=== PATIENT | female | born 2000 | race Caucasian/White ===

== ENCOUNTER 2025-07-26 09:38 | Emergency (ER) | payer OTHER, SELFPAY ==
[2025-07-26] VITALS (7 sets, daily range): BP systolic 107–137; BP diastolic 67–79; PULSE 66–89; RESP 18; TEMP 36.6; O2SAT 94–100; BMI 27.4
--- NOTE | 2025-07-26 | DI.US.S_ITS ---
PROCEDURE: US ABDOMEN COMPLETE INDICATIONS: DIFFUSE PAIN TECHNIQUE: Real-time scanning was performed of the abdominal and retroperitoneal organs, with image documentation. COMPARISON: None. FINDINGS: Liver: Liver measures 14 cm. Mildly increased echogenicity Gallbladder: Absent Biliary ducts: Nondilated CBD at 3 mm Pancreas: Visualized portions of the pancreas are sonographically normal. Spleen: Spleen is normal in size and homogeneous in echotexture. Kidneys: Kidneys are normal in size and echotexture. Right kidney measures 10 cm long; left kidney measures 10 cm long. No hydronephrosis or nephrolithiasis. No solid masses. Aorta: Visualized aorta is normal in caliber at less than 3 cm. Iliacs: Proximal common iliac arteries are normal in caliber at less than 2.5 cm. IVC: Intrahepatic inferior vena cava is patent. Miscellaneous: No free abdominal fluid. IMPRESSION: No acute abdominal abnormality by ultrasound. Liver shows mildly increased echogenicity, nonspecific, most commonly steatosis. Dictated by: Joss Martínez M.D. on 07/26/2025 at 11:14 Approved by: Joss Martínez M.D. on 07/26/2025 at 11:15
--- NOTE | 2025-07-26 10:21 | DI.US.S_ITS ---
PROCEDURE: US PELVIC COMPLETE INDICATIONS: RIGHT PELVIC PAIN TECHNIQUE: Real-time scanning was performed of the pelvic organs, with image documentation. Additional endovaginal scanning was necessary due to incomplete visualization of the adnexal and endometrial structures by transabdominal scanning. COMPARISON: None. FINDINGS: Uterus: Absent Ovaries: Nonenlarged, measuring 4 mL on the right and 6 mL on the left. Color and spectral flows are seen bilaterally. Other: Appendix was not visualized on ultrasound IMPRESSION: No acute or significant sonographic abnormality in the pelvis. Uterus is absent. Dictated by: Joss Martínez M.D. on 07/26/2025 at 11:15 Approved by: Joss Martínez M.D. on 07/26/2025 at 11:16
--- NOTE | 2025-07-26 10:22 | ED.ABDPAIN ---
HPI - Abdominal Pain General Chief Complaint: Abdominal Pain Stated Complaint: Lower rt abd pain, diarrhea, breast pain x1 week Time Seen by Provider: 07/26/25 10:12 History of Present Illness HPI narrative: This is a 24-year-old female seen today for right lower quadrant abdominal pain x1 week. Patient reports that she has a had right lower quadrant abdominal pain for a week he has not had dysuria, has chronically had a bit of a vaginal discharge and pain with intercourse. Says that she episodically has pelvic pain associated with breast engorgement and URI symptoms. This occurs approximately monthly, she is status post hysterectomy with ovaries left in-situ. Has been discussing this with her primary care at the [facility], does not feel like she is getting much done about it. Patient is sexually active with 1 male partner. No history of gonorrhea and chlamydia. No changes in her bowel habits. States that her current right lower quadrant symptoms are worse than they have ever been previously. Related Data Allergies Allergy/AdvReac Type Severity Reaction Status Date / Time diphenhydramine (From AdvReac tachycardia Verified 07/26/25 10:08 Benadryl) Patient History Social History Smoking Status: Never smoker Exam Initial Vital Signs Initial Vital Signs: Vital Signs Temperature 98 F 07/26/25 10:05 Pulse Rate 89 07/26/25 10:05 Respiratory Rate 18 07/26/25 10:05 Blood Pressure 137/77 07/26/25 10:05 Pulse Oximetry 99 07/26/25 10:05 Oxygen Delivery Method Room Air 07/26/25 10:05 vital signs are reviewed Const General: cooperative and No acute distress [facility] Head: normocephalic and atraumatic Face and sinus: face symmetric Mouth: moist mucous membranes Eyes Pupils: PERRL EOM: EOM intact bilaterally Neck Neck: normal visual inspection, supple and No JVD Chest Chest: normal inspection of the chest Resp Effort & Inspection: normal respiratory effort and able to speak in complete sentences Auscultation: clear to auscultation bilaterally Cardio Rate: regular rate Rhythm: regular rhythm Heart Sounds: no murmurs Other: Normal heart rate GI Other: Abdomen is soft, bowel sounds are normal. She is diffusely tender with voluntary guarding. No mass, no definite focal tenderness. No rebound. Back/Spine/Pelvis Back: normal to inspection Skin General: no rashes or lesions noted and warm Neuro General: patient alert, patient oriented x3 and moves all extremities Speech: speech normal Extrem General: full ROM Psych Appearance: grossly normal Course Orders Ordered: Discontinued Medications Ketorolac Tromethamine (Ketorolac 30 Mg/Ml Vial) 15 mg IV NOW ONE Stop: 07/26/25 10:20 Last Admin: 07/26/25 11:56 Dose: Not Given Documented By: KAYLA MDM - Abdominal Pain Lab Data Lab results narrative: CBC with diff and CMP are reassuring. Urinalysis is unremarkable, you are negative for gonorrhea and chlamydia 07/26/25 11:17 07/26/25 11:17 Labs: Lab Results 07/26/25 07/26/25 Range/Units 10:49 11:17 WBC 7.3 (4.5-11.0) X10^3/uL RBC 4.51 (4.0-5.2) X10^6/uL Hgb 13.0 (12.0-16.0) g/dL Hct 37.8 (36-46) % MCV 83.8 (80-100) fL MCH 28.8 (26-34) PG MCHC 34.4 (30-36) % RDW 13.1 (11.6-14.8) % Plt Count 330 (150-400) X10^3/uL Neut % (Auto) 56.4 (50-75) % Lymph % (Auto) 34.1 (25-40) % [place]racken % (Auto) 6.2 (3-14) % Eos % (Auto) 2.8 (2-4) % Baso % (Auto) 0.5 (0-2) % Neut # (Auto) 4100 (8299-0565) /uL Lymph # (Auto) 2500 (7906-5255) /uL M[place]racken # (Auto) 500 (0-900) /uL Eos # (Auto) 200 (0-450) /uL Baso # (Auto) 0 (0-100) /uL Sodium 137 (137-145) mmol/L Potassium 4.3 (3.4-5.1) mmol/L Chloride 104 (98-107) mmol/L Carbon Dioxide 24 (22-32) mmol/L BUN 13 (7-17) mg/dL Creatinine 0.72 (0.52-1.04) mg/dL Estimated GFR > 60 (>60) mL/min BUN/Creatinine Ratio 18.1 (6-22) Glucose 83 (70-99) mg/dL Calcium 9.2 (8.4-10.2) mg/dL Total Bilirubin 0.4 (0.2-1.3) mg/dL AST 29 (14-36) IU/L ALT 25 (<35) IU/L Alkaline Phosphatase 71 (38-126) U/L Total Protein 9.0 H (6.3-8.2) g/dL Albumin 5.1 H (3.5-5.0) g/dL Globulin 3.9 (1.7-4.1) g/dL Albumin/Globulin Ratio 1.3 (1.0-2.8) Lipase 53 (23-300) U/L Urine Color Yellow Urine Appearance Clear Urine pH 7.0 (4.5-8.0) Ur Specific [place] 1.015 (1.000-1.035) Urine Protein Negative (Negative) Urine Glucose (UA) Negative (Negative) g/dL Urine Ketones Negative (NEGATIVE) Urine Occult Blood Negative (Negative) Urine Nitrate Negative (Negative) Urine Bilirubin Negative (NEGATIVE) Urine Urobilinogen 0.2 (0.2) E.U./dL Ur Leukocyte Esterase Negative (NEGATIVE) Urine RBC None seen (0-5/HPF) Urine WBC None seen (0-5/HPF) Ur Squamous Epith Cells None seen (0-5/HPF) Urine Bacteria None seen (None) Ur Culture Indicated? Cult not indicated Vol Urine Centrifuged 10ml (spun) Ur Chlamydia DNA (PCR) Not detected N gonorrhoeae DNA (PCR) Not detected Imaging Data US - abdomen: Radiologist's Impression: Radiology report reviewed, no acute finding US - [facility]: Radiologist's Impression: Radiology report reviewed, uterus is absent no acute finding MDM Narrative Medical decision making narrative: 25-year-old female with abdominal and pelvic pain that has been persistent for some time. Workup did not suggest cholecystitis, appendicitis, diverticulitis, bowel obstruction ureteral stone or urinary tract infection, ovarian torsion or mass. Patient appears well. Recommended symptomatic care and she is referred to gynecology for further evaluation Discharge Plan Departure Patient Disposition: Home Clinical Impression: Pelvic pain Activity Restrictions/Additional Instructions: Emergency department evaluation today is reassuring. No serious cause for her pelvic pain is identified. I think it is safe to go home. I think it is unlikely that this is appendicitis, however if you are having increasing pain fevers or vomiting return to the emergency department. You can use ibuprofen 600 mg up to 3 times a day as needed for pain you can also use acetaminophen (Tylenol) 650-1000 mg up to 4 times a day total daily dose should not exceed 4000 mg. For episodic diarrhea you can use Imodium as directed on the packaging. I have made a gynecology referral, call them for follow up. Referrals: Provider,Kaylene PAREDES [Primary Care Provider, Family Practice] Dorota Mendez MD [Physician, [employer] [facility]] Stand Alone Forms: Patient Portal/API
[2025-07-26 10:57] LABS: Appearance Urine UA CLEAR; Bilirubin Urine UA NEGATIVE (NEGATIVE); Color Urine UA YELLOW; Glucose Urine UA NEGATIVE (Negative); Ketones Urine UA NEGATIVE (NEGATIVE); Leukocyte Esterase Urine UA NEGATIVE (NEGATIVE); Nitrite Urine UA NEGATIVE (Negative); Occult Blood Urine UA NEGATIVE (Negative); Protein Urine UA NEGATIVE (Negative); Specific Gravity Urine UA 1.015 (1.000-1.035); Urobilinogen Urine UA 0.2 E.U./dL (0.2); pH Urine UA 7.0 (4.5-8.0)
[2025-07-26 11:00] LABS: Culture Indicated Urine Cult Not Indicated
[2025-07-26 11:26] LABS: Add Manual Diff / Slide Review NO; Hematocrit 37.8 % (36-46); Hemoglobin 13.0 g/dL (12.0-16.0); Lymphocytes Absolute Auto 2500 /uL (1100-4500); Mean Corpuscular HGB Conc 34.4 % (30-36); Mean Corpuscular Hemoglobin 28.8 PG (26-34); Mean Corpuscular Volume 83.8 fL (80-100); Platelet Count 330 X10^3/uL (150-400)
[2025-07-26 11:41] LABS: Alanine Aminotransferase 25 IU/L (<35); Albumin 5.1 g/dL (3.5-5.0); Albumin Globulin Ratio 1.3 (1.0-2.8); Alkaline Phosphatase 71 U/L (38-126); Blood Urea Nitrogen 13 mg/dL (7-17); Calcium 9.2 mg/dL (8.4-10.2); Carbon Dioxide 24 mmol/L (22-32); Chloride 104 mmol/L (98-107); Estimated Glomerular Filt Rate > 60 mL/min (>60); Globulin 3.9 g/dL (1.7-4.1); Glucose 83 mg/dL (70-99); HEMOLYSIS 32 (0-50); Lipase 53 U/L (23-300); Potassium 4.3 mmol/L (3.4-5.1); Sodium 137 mmol/L (137-145); Total Protein 9.0 g/dL (6.3-8.2)
[2025-07-26 12:22] LABS: Urine Chlamydia NOT DETECTED; Urine N gonorrhoeae NOT DETECTED
== END 2025-07-26 12:00 | disposition home or self-care (01) ==
PROVIDERS: Emergency Provider Emergency Medicine
DX: R10.21 Pelvic and perineal pain right side (principal)
CPT/HCPCS: 76700; 76830; 76856; 80053; 81001; 83690; 85025; 87491; 87591; 93975; 99282; 99284